=== PATIENT | female | born 1955 | race Caucasian/White ===

== ENCOUNTER → 2019-10-31 | Emergency (ER) | payer MEDICAID ==
[~2019-10-31] VITALS: Ht 162.6 cm; Wt 110.0 kg
[~2019-10-31] MED LIST: LORazepam 2 mg/ml vial IV ONE; MECL-159 PO; ONDA4TAB12 PO; meclizine 12.5mg tablet PO ONE; normal saline 1000ml 1,000 ML IV ONE; ondansetron/PF 4mg/2ml inj IV ONE
--- NOTE | 2019-10-31 08:49 | NUR ---
Dr Allenfs in at bedside for assessment.
[2019-10-31 10:33] VITALS: BP 126/74
== END | disposition home or self-care (01) ==
LOC: ER 08:28
DX: H81.10 Benign paroxysmal vertigo, unspecified ear (principal); R11.2 Nausea with vomiting, unspecified; Z79.899 Other long term (current) drug therapy
CPT/HCPCS: 96374; 96375; 99284; J2060; J2405; J7030; J8597

== ENCOUNTER 2020-05-15 21:27 | Emergency (ER) | payer MEDICAID ==
[~2020-05-15] VITALS: Ht 162.6 cm; Wt 100.0 kg
[~2020-05-15 21:27] MED LIST changes: -LORazepam 2 mg/ml vial IV ONE; -meclizine 12.5mg tablet PO ONE; -normal saline 1000ml 1,000 ML IV ONE; -ondansetron/PF 4mg/2ml inj IV ONE
[2020-05-15] MEDS ORDERED: PROC-8 PO (22:20)
[2020-05-15] MEDS ORDERED: proCHLORperazine 10mg tablet PO ONE (22:20)
== END 2020-05-15 23:36 | disposition home or self-care (01) ==
LOC: ER 21:28
DX: J06.9 Acute upper respiratory infection, unspecified (principal); R43.8 Other disturbances of smell and taste; R09.89 Other specified symptoms and signs involving the circulatory and respiratory systems; R11.0 Nausea; R05 Cough; R53.1 Weakness; R53.83 Other fatigue; Z20.828 Contact with and (suspected) exposure to other viral communicable diseases; Z79.899 Other long term (current) drug therapy
CPT/HCPCS: 36415; 87635; 99283; Q0164; U0003